=== PATIENT | female | born 1995 | race Caucasian/White ===

== ENCOUNTER 2016-11-09 10:49 | Emergency (ER) | payer OTHER ==
--- NOTE | 2016-11-09 13:55 | UC ---
FLU HPI - HPI Summary HPI Summary: Sore throat head congestion slight fever for 2 days - History of Current Complaint Chief Complaint: UCRespiratory Stated Complaint: HEAD CONGESTION SORE THROAT FEVER Time Seen by Provider: 11/09/16 13:43 Hx Obtained From: Patient Hx Last Menstrual Period: 10/18/16 ?: No Onset/Duration: Sudden Onset, Lasting Days - 3, Still Present Severity Currently: Mild Severity Initially: Mild Pain Intensity: 3 Pain Scale Used: 0-10 Numeric Associated Signs & Symptoms: Positive: Fever, Sore Throat, Headache - Allergy/Home Medications Allergies/Adverse Reactions: Allergies Allergy/AdvReac Type Severity Reaction Status Date / Time No Known Allergies Allergy Verified 11/09/16 13:46 Home Medications: Home Medications FLUoxetine* [PROzac*] 10 mg PO DAILY 11/09/16 [History Confirmed 11/09/16] PMH/Surg Hx/FS Hx/Imm Hx Previously Healthy: Yes - Surgical History Surgical History: None - Family History Known Family History: Positive: None Family History: denies cardiovascular issues in family lineage - Social History Occupation: Student Lives: With Family Alcohol Use: None Substance Use Type: None Smoking Status (MU): Never Smoked Tobacco Review of Systems Constitutional: Fever, Chills, Fatigue Skin: Negative Eyes: Negative ENT: Sore Throat Respiratory: Negative Cardiovascular: Negative Gastrointestinal: Negative Genitourinary: Negative Motor: Negative Neurovascular: Negative Musculoskeletal: Negative Neurological: Negative Psychological: Negative All Other Systems Reviewed And Are Negative: Yes Physical Exam Triage Information Reviewed: Yes Appearance: Well-Appearing, No Pain Distress, Well-Nourished Vital Signs: Initial Vital Signs Temp 97.9 F 11/09/16 13:43 Pulse 80 11/09/16 13:43 Resp 18 11/09/16 13:43 BP 106/62 11/09/16 13:43 Pulse Ox 100 11/09/16 13:43 Vital Signs Reviewed: Yes Eye Exam: Normal Eyes: Positive: Conjunctiva Clear ENT Exam: Normal ENT: Positive: Normal ENT inspection, Hearing grossly normal, Pharyngeal erythema, TMs normal. Negative: Nasal congestion, Nasal drainage, Tonsillar swelling, Tonsillar exudate, Trismus, Muffled/hoarse voice Dental Exam: Normal Neck exam: Normal Neck: Positive: Supple, Nontender, Enlarged Nodes @ - mild anterior cervical lymphadenopathy Respiratory Exam: Normal Respiratory: Positive: Chest non-tender, Lungs clear, Normal breath sounds, No respiratory distress, No accessory muscle use Cardiovascular Exam: Normal Cardiovascular: Positive: RRR, No Murmur, Pulses Normal, Brisk Capillary Refill Musculoskeletal Exam: Normal Musculoskeletal: Positive: Strength Intact, ROM Intact, No Edema Neurological Exam: Normal Neurological: Positive: Alert, Muscle Tone Normal Psychological Exam: Normal Diagnostics - Laboratory Diagnostic Studies Completed/Ordered: RST (+) Flu Course/Dx - Course Course Of Treatment: Amoxicillin, increase fluids, rest, tylenol, ibuprofen re- check prn - Differential Dx/Diagnosis Differential Diagnosis/HQI/PQRI: Bronchitis, Influenza, Upper Respiratory Infection, Other - Strep Pharyngitis Provider Diagnoses: Strep Pharyngitis Discharge - Discharge Plan Condition: Stable Disposition: HOME Prescriptions: Amoxicillin CAP* 500 mg PO Q12H #20 cap Patient Education Materials: Amoxicillin (By mouth), Strep Throat (ED) Forms: *School Release Referrals: [facility] [Outside] - If Needed Non Staff,Doctor [Primary Care Provider] -
== END 2016-11-09 14:35 | disposition home or self-care (01) ==
LOC: UCEAST 10:49
DX: J02.0 Streptococcal pharyngitis (principal)
CPT/HCPCS: 87502; 87651; 99202; G0463

== ENCOUNTER 2018-12-13 23:16 | Emergency (ER) | payer OTHER ==
[2018-12-14 02:06] VITALS: BP 112/68
--- NOTE | 2018-12-14 03:21 | ED ---
HPI Chest Pain - HPI Summary HPI Summary: The patient is a 23 y/o F presenting to [facility] with a chief complaint of sudden onset sharp right anterior chest wall pain that radiated to the right upper back as a dull pain at approximately 2200 lasting until 2245. The pain resolved on her way to the ED. She additionally c/o SOB that was worsened with deep breathing. She also reports that over the last week she has had intermittent episodes of dull burning abd pain. She is not on control right now, and she doesn't take any other medications. - History of Current Complaint Chief Complaint: EDChestWallPain Time Seen by Provider: 12/14/18 01:36 Hx Last Menstrual Period: 10/18/16 Timing: Lasting Minutes Initial Severity: Moderate Current Severity: None Pain Intensity: 0 Pain Scale Used: 0-10 Numeric Chest Pain Location: Right Anterior Chest Pain Radiates: Yes Chest Pain Radiates To:: Back - right upper back - Allergy/Home Medications Allergies/Adverse Reactions: Allergies Allergy/AdvReac Type Severity Reaction Status Date / Time No Known Allergies Allergy Verified 11/09/16 13:46 PMH/Surg Hx/FS Hx/Imm Hx Endocrine/Hematology History: Denies: Hx Diabetes Respiratory History: Denies: Hx Asthma - Surgical History Surgery Procedure, Year, and Place: none Infectious Disease History: No Infectious Disease History: Denies: Traveled Outside the [place] in Last 30 Days - Family History Known Family History: Negative: Cardiac Disease, Hypertension, Diabetes Family History: denies cardiovascular issues in family lineage - Social History Occupation: Student Alcohol Use: None Substance Use Type: Reports: None Smoking Status (MU): Never Smoked Tobacco Review of Systems Positive: Chest Pain - chest wall pain over the right anterior wall and radiating into right back Positive: Shortness Of Breath Positive: Abdominal Pain - intermittent. Negative: Vomiting, Nausea All Other Systems Reviewed And Are Negative: Yes Physical Exam - Summary Physical Exam Summary: Appearance: Well-appearing, Well-nourished, lying in bed comfortably Skin: Warm, dry, no obvious rash Eyes: sclera anicteric, no conjunctival pallor ENT: mucous membranes moist, pharynx appears normal Neck: Supple, nontender Respiratory: Clear to auscultation, no signs of respiratory distress Cardiovascular: Normal S1, S2. No murmurs. Normal distal pulses in tibial and radial bilaterally. Abdomen: Soft, nontender, normal active bowel sounds present Musculoskeletal: Normal, Strength/ROM Intact Neurological: A&Ox3, awake and alert, mentation is normal, speech is fluent and appropriate Psychiatric: affect is normal, does not appear anxious or depressed Triage Information Reviewed: Yes Vital Signs On Initial Exam: Initial Vitals Temp Pulse Resp BP Pulse Ox 99.3 F 64 18 125/72 99 12/13/18 23:25 12/13/18 23:25 12/13/18 23:25 12/13/18 23:25 12/13/18 23:25 Vital Signs Reviewed: Yes Diagnostics - Vital Signs Vital Signs Temp Pulse Resp BP Pulse Ox 12/14/18 02:04 98.8 F 64 17 112/68 99 12/13/18 23:25 99.3 F 64 18 125/72 99 - Laboratory Lab Statement: Any lab studies that have been ordered have been reviewed, and results considered in the medical decision making process. Chest Pain Course/Dx - Course Course Of Treatment: The patient is a 23 y/o F with a chief complaint of sudden onset sharp right anterior chest wall pain that radiated to the right upper back as a dull pain at approximately 2200 lasting until 2245. The pain resolved on her way to the ED. She additionally c/o SOB that was worsened with deep breathing. She also reports that over the last week she has had intermittent episodes of dull burning abd pain. She is not on control right now, and she doesn't take any other medications. Upon physical examination, there are no acute abnormalities. PERC negative. EKG is normal. She is diagnosed with chest pain. She agrees with plan of discharge and understands the need for return to the ED for any new or worsening symptoms. - Diagnoses Provider Diagnoses: Chest pain Discharge - Sign-Out/Discharge Documenting (check all that apply): Patient Departure - Patient will be discharged home. Patient Received Moderate/Deep Sedation with Procedure: No - Discharge Plan Condition: Improved Disposition: HOME Patient Education Materials: Chest Pain (ED) Referrals: [facility] [Outside] - If Needed Additional Instructions: Since your pain has resolved, we decided to hold off on any specific diagnostic testing. I do not think this pain represented anything worrisome. If it recurs and is not any worse than it was tonight, and you don't have any other symptoms with it like nausea, sweating, or shortness of breath, you could give it some time, perhaps an hour or two, to resolve on its own, but if it persists past that we should probably see you back here for some testing. - Billing Disposition and Condition Condition: IMPROVED Disposition: Home - Attestation Statements Document Initiated by Chetan: Yes Documenting Scribe: Margie Martinez Provider For Whom Chetan is Documenting (Include Credential): Dr. Navarro Farley MD Scribe Attestation: I, Margie Martinez scribed for Dr. Navarro Farley MD on 12/15/18 at 0425. Scribe Documentation Reviewed: Yes Provider Attestation: The documentation as recorded by the Margie stark accurately reflects the service I personally performed and the decisions made by me, Dr. Navarro Farley MD Status of Scrkatia Document: Viewed
== END 2018-12-14 02:04 | disposition home or self-care (01) ==
LOC: ED 23:16
DX: R07.89 Other chest pain (principal); M54.6 Pain in thoracic spine; R06.02 Shortness of breath
CPT/HCPCS: 93005; 99282